=== PATIENT | female | born 1985 ===

== ENCOUNTER 2023-01-10 09:06 | Outpatient (CLI) | payer OTHER | END 2023-01-10 11:15 | disposition home or self-care (01) | LOC: PRENATAL 09:06 | PROVIDERS: ATTEND Obstetrics & Gynecology Maternal & Fetal Medicine | DX: O26.849 Uterine size-date discrepancy, unspecified trimester (principal); O34.219 Maternal care for unspecified type scar from previous cesarean delivery; O09.529 Supervision of elderly multigravida, unspecified trimester; O99.280 Endocrine, nutritional and metabolic diseases complicating pregnancy, unspecified trimester; Z36 Encounter for antenatal screening of mother; O28.3 Abnormal ultrasonic finding on antenatal screening of mother; Z3A.15 15 weeks gestation of pregnancy ==

== ENCOUNTER 2023-01-16 09:49 | Outpatient (CLI) | payer OTHER | END 2023-01-16 13:54 | disposition home or self-care (01) | LOC: PRENATAL 09:49 | PROVIDERS: ATTEND Obstetrics & Gynecology Maternal & Fetal Medicine | DX: O28.5 Abnormal chromosomal and genetic finding on antenatal screening of mother (principal); O26.849 Uterine size-date discrepancy, unspecified trimester; Z3A.16 16 weeks gestation of pregnancy ==

== ENCOUNTER 2023-02-08 08:16 | Outpatient (CLI) | payer OTHER | END 2023-02-08 09:25 | disposition home or self-care (01) | LOC: PRENATAL 08:16 | PROVIDERS: ATTEND Obstetrics & Gynecology Maternal & Fetal Medicine | DX: O35.9XX0 Maternal care for (suspected) fetal abnormality and damage, unspecified, not applicable or unspecified (principal); O35.3XX0 Maternal care for (suspected) damage to fetus from viral disease in mother, not applicable or unspecified; O09.529 Supervision of elderly multigravida, unspecified trimester; O99.280 Endocrine, nutritional and metabolic diseases complicating pregnancy, unspecified trimester; O34.219 Maternal care for unspecified type scar from previous cesarean delivery; Z3A.20 20 weeks gestation of pregnancy ==